=== PATIENT | male | born 1955 | race Caucasian/White ===

== ENCOUNTER 2020-08-11 20:21 | Emergency (ER) | payer OTHER ==
[~2020-08-11] VITALS: Ht 180.3 cm; Wt 105.9 kg
[2020-08-11 20:55] LABS: BASOPHILS % (AUTO) 1 % (0-1); EOSINOPHILS % (AUTO) 8 % (1-7); LYMPHOCYTES % (AUTO) 18 % (22-44); MEAN CORPUSCULAR HEMOGLOBIN 30.5 pg (27.5-34.5); MEAN CORPUSCULAR HGB CONC 35.3 g/dL (33.2-36.2); MEAN PLATELET VOLUME 7.7 fL (7.4-10.4); MONOCYTES % (AUTO) 7 % (2-9); NEUTROPHILS % (AUTO) 67 % (42-75); PLATELET COUNT 254 x10^3/uL (130-400); RED BLOOD COUNT 5.45 x10^6/uL (4.38-5.82); RED CELL DISTRIBUTION WIDTH 13.1 % (9.4-14.8)
--- NOTE | 2020-08-11 20:59 | NUR ---
PT STATES CHEST PAIN STARTED ABOUT A MONTH AGO AND A PRESSURE FELT ON EXERTION. SOB ON EXERTION WELL. ELEVATED BP AND DIZZYNESS A COUPLE TIMES TODAY BROUGHT PT INTO THE ED. PT STATES TAKING LISINOPRIL FOR LAST 10 DAYS. BP 205 OVER 85 EARLIER/.
[2020-08-11 21:00] LABS: MD NO
[2020-08-11 21:02] LABS: ALBUMIN 3.8 g/dL (3.4-5.0); ANION GAP 6 mmol/L (5-15); CALCIUM 7.9 mg/dL (8.5-10.1); CHLORIDE 103 mmol/L (98-107); CREATININE 1.21 mg/dL (0.7-1.3)
[2020-08-11 21:07] LABS: ALKALINE PHOSPHATASE 106 U/L (45-117); BILIRUBIN,TOTAL 0.4 mg/dL (0.2-1.0); TOTAL PROTEIN 7.3 g/dL (6.4-8.2); TROPONIN I < 0.015 ng/mL (0.000-0.045)
[2020-08-11 21:15] LABS: ALANINE AMINOTRANSFERASE 75 U/L (12-78)
[2020-08-11] MEDS ORDERED: hydrALAzine 20 MG/ML, 1ML IV ONE (21:30)
[2020-08-11] MEDS ORDERED: hydrALAzine 20 MG/ML, 1ML ONE (21:42)
[2020-08-11 21:47] VITALS: BP 155/85
--- NOTE | 2020-08-11 22:02 | NUR ---
PT BP DROPPED TO 155 SYSTOLIC SO MD INSTRUCTED ME NOT TO GIVE HYDRALAZINE.
== END 2020-08-11 22:38 | disposition home or self-care (01) ==
LOC: ED 22:31
DX: R07.89 Other chest pain (principal); R42 Dizziness and giddiness; R06.02 Shortness of breath; R94.31 Abnormal electrocardiogram [ECG] [EKG]; I10 Essential (primary) hypertension; Z76.0 Encounter for issue of repeat prescription
CPT/HCPCS: 36415; 71045; 80053; 84484; 85025; 93005; 99285